=== PATIENT | male | born 1990 | race Two or more races ===

== ENCOUNTER 2023-06-23 13:14 | Emergency (ER) | payer BC, SELFPAY ==
--- NOTE | ~2023-06-23 | CT_ITS ---
CT HEAD WITHOUT IV CONTRAST CT CERVICAL SPINE WITHOUT IV CONTRAST CT MAXILLOFACIAL WITHOUT IV CONTRAST INDICATION: Pain with injury. COMPARISON: None available. TECHNIQUE: Multidetector CT acquisitions of the head, maxillofacial region, and cervical spine were obtained without IV contrast. Multiplanar reformats were acquired and utilized for image interpretation. This CT examination was performed using dose optimization techniques as appropriate, variously including the following: *Automated exposure control *Adjustment of mA and/or kV according to patient size (this includes techniques or standardized protocols for targeted exams where dose is matched to indication/reason for exam; i.e. extremities or head) *Use of iterative reconstruction technique FINDINGS: HEAD: There is no intracranial hemorrhage, hydrocephalus, extra-axial surface collection, midline shift, or other herniation pattern. Mazariegos to white matter differentiation is diffusely maintained without evidence of an evolved acute territorial infarct. The basilar cisterns are preserved. No significant soft tissue abnormality. No acute osseous abnormality. MAXILLOFACIAL: There are no acute maxillofacial fractures. There is moderate mucosal thickening within the left maxillary sinus. The remaining paranasal sinuses remain well-aerated. There is leftward deviation of the nasal septum. Mastoid air cells and middle ear cavities are clear. The TMJs are unremarkable. CERVICAL SPINE: There is anatomic alignment of the vertebral bodies and posterior elements. There is no acute fracture and there is no acute subluxation. The craniocervical and atlantoaxial articulations are normal. There is no prevertebral soft tissue swelling. No significant soft tissue abnormality within the neck. The visualized lung apices are clear. CT/CT cervical spine wo IV con IMPRESSION: - No acute intracranial abnormality. - No acute osseous abnormality within the cervical spine. - No acute osseous abnormality within the maxillofacial region. Moderate mucosal thickening within the left maxillary sinus and leftward deviation of the nasal septum.
[2023-06-23 13:28] VITALS: BP 117/65; PULSE 72; RESP 18; TEMP 36.8; BMI 29.6
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
[2023-06-23 15:53] VITALS: BP 139/81; PULSE 80; RESP 20; TEMP 36.4; O2SAT 97
== END 2023-06-23 16:20 | disposition home or self-care (01) ==
PROVIDERS: Emergency Provider Emergency Medicine Emergency Medical Services
DX: S13.4XXA Sprain of ligaments of cervical spine, initial encounter (principal); S09.90XA Unspecified injury of head, initial encounter; V89.2XXA Person injured in unspecified motor-vehicle accident, traffic, initial encounter; Y93.89 Activity, other specified; Y92.410 Unspecified street and highway as the place of occurrence of the external cause; Y99.9 Unspecified external cause status
CPT/HCPCS: 70450; 70486; 72125; 99284

== ENCOUNTER 2024-12-02 01:10 | Emergency (ER) | payer OTHER, BC, SELFPAY ==
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
[2024-12-02 01:13] VITALS: BP 140/100; PULSE 86; RESP 16; TEMP 36.7; O2SAT 100; BMI 28.0
--- OUTSIDE RECORDS SUMMARY | 2024-12-02 03:21 | XMS_ITS | Clinical Summary ---
Author Organization [facility] Address [address] [place] [address] Care Team Providers Care Cytology Supervisor Name Role Phone Slim Lopez MD Primary Care Provider [phone] Allergies No known active allergies Medications lancetsIndicatio ns:Type 1 diabetes mellitus without complication (CMS/[facility]) 1 (one) lancet (1 each total) by Miscellaneous route 2 (two) times a day. 200 each 3 12/21/19 23 Active blood sugar diagnostic (ONETOUCH ULTRA TEST) Strip Test daily before all meals/snacks and once before bedtime. 200 strip 3 12/22/19 23 Active lancets (ONETOUCH ULTRASOFT) Test daily before all meals/snacks and once before bedtime. 200 each 3 12/22/19 23 Active Active Problems Problem Noted Date Diagnosed Date Encounter to establish care 12/20/2022 Annual physical exam 12/20/2022 Overview (12/19/2023): Age appropriated vaccine reviewed and discussed.. Type 1 diabetes mellitus without complication Primary hypertension 12/20/2022 Assessment & Plan (12/20/2022 2:11 PM EDT): Hypertension is unchanged. Dietary sodium restriction. Weight loss. Regular aerobic exercise. Blood pressure will be reassessed in 3 months. Alcohol use 12/20/2022 Overview (12/20/2022): Social drinker, 2-3 drinks at a time, once a while. Marijuana use 12/20/2022 Overview (12/20/2022): 2 times a day for recreational. Risks discussed. Advised to avoid long term care pharmacist regular use. Handout given. 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 Numbness and tingling of left leg 12/20/2022 Chronic left hip pain 12/20/2022 Immunizations Name Administration Dates Next Due Influenza Quadrivalent Preservative Free (IM) Family History Medical History Relation Name Comments Stomach cancer Father Diabetes Maternal Grandmother Stroke Paternal Grandmother Alcohol abuse Paternal cousin Depression Paternal cousin Relation Name Status Comments Father Maternal Grandmother Paternal Grandmother Paternal cousin Alive Social History Tobacco Use Types Packs/Day Years Used Date Smoking Tobacco: Never Smokeless Tobacco: Never Tobacco Cessation:Counseling Given: No AUDIT-C Answer Date Recorded Q1: How often do you have a drink containing alc ohol? 2-4 times a month 12/20/2022 Q2: How many drinks containi ng alcohol do you have on a typical day when you are drinking? 3 or 4 12/20/2022 Q3: How often do you have si x or more drinks on one occasion? Less than monthly 12/20/2022 PHQ-2 Answer Date Recorded Patient Health Questionnaire-2 Score for SDOH 0 12/20/2022 Sex and Gender Information Value Date Recorded Sex Assigned at Not on file Legal Sex Male 8:39 AM EDT Gender Identity Male 12/20/2022 1:32 PM EDT Sexual Orientation Not on file Last Filed Vital Signs Vital Sign Reading Time Taken Comments Blood Pressure 130/84 12/20/2022 1:01 PM EDT Pulse 87 12/20/2022 1:01 PM EDT Temperature - - Respiratory Rate - - Oxygen Saturation 98% 12/20/2022 1:01 PM EDT Inhaled Oxygen Concentration - - Weight 92.1 kg (203 lb) 12/20/2022 1:01 PM EDT Height 172.7 cm (5' 8 ) 12/20/2022 1:01 PM EDT Body Mass Index 30.87 12/20/2022 1:01 PM EDT Plan of Treatment Health Maintenance Due Date Last Done Comments HEMOGLOBIN A1C 1992 DIABETIC EYE EXAM 1993 FOOT EXAM 2002 HEPATITIS C SCREENING 2009 PNEUMOCOCCAL VACCINE (1 of 2 - PCV) 11/13/2011 DTAP/TDAP/TD VACCINES (1 - Tdap) 2021 COVID-19 IMMUNIZATION (3 - season) 2023 05/21/2021, 08/07/2020 INFLUENZA VACCINE (#1) 2024 01/16/2020 URINE MICROALBUMIN 11/14/2025 11/14/2024 eGFR Screening 11/14/2025 11/14/2024 ZOSTER VACCINE (1 of 2) 2042 RSV IMMUNIZATION (1 - 1-dose 75+ series) 11/13/2067 IPV VACCINES Aged Out No longer eligi ble based on patient's age to complete this topic MENINGOCOCCAL B VACCINE Aged Out No l onger eligible based on patient's age to complete this topic Insurance [facility] ([facility]) Care Teams Cytology Supervisor Relationship Specialty Start Date End Date Slim Lopez MD [address] [facility] [place], [place] [id number] PCP - General Internal Medicine 12/20/22
--- OUTSIDE RECORDS SUMMARY | 2024-12-02 03:21 | XMS_ITS ---
Author Name [facility] Organization Unknown Care Team Organization Name Specialty Phone Email Start Date End [facility] Slim Lopez Primary Care 08/28/2024
--- OUTSIDE RECORDS SUMMARY | 2024-12-02 03:21 | XMS_ITS | Clinical Summary ---
Author Organization [facility] Address [address] [place] [address] Care Team Providers Care Candy Separator Hard Name Role Phone Pcp, No Primary Care Provider Unavailabl e Allergies No known active allergies Medications ibuprofen 600 MG tablet Take 1 tablet (600 mg total) by mouth every 8 (eight) hours as needed for mild pain (1-3) 30 tablet 02/22/2022 Active Social History Tobacco Use Types Packs/Day Years Used Date Smoking Tobacco: Never Smokeless Tobacco: Never Tobacco Cessation:Counseling Given: Not Answered Alcohol Use Standard Drinks/Week Comments Not Currently 0 (1 standard drink = 0.6 oz pur e alcohol) Sex and Gender Information Value Date Recorded Sex Assigned at Not on file Legal Sex Male 7:57 AM EST Gender Identity Not on file Sexual Orientation Not on file Last Filed Vital Signs Vital Sign Reading Time Taken Comments Blood Pressure 129/75 02/22/2022 10:57 AM EST Pulse 90 02/22/2022 10:57 AM EST Temperature 36.6 C (97.8 F) 02/22/2022 8:02 AM EST Respiratory Rate 18 02/22/2022 10:57 AM EST Oxygen Saturation 100% 02/22/2022 10:57 AM EST Inhaled Oxygen Concentration - - Weight 95.3 kg (210 lb) 02/22/2022 8:02 AM EST Height 177.8 cm (5' 10 ) 02/22/2022 8:02 AM EST Body Mass Index 30.13 02/22/2022 8:02 AM EST Plan of Treatment Health Maintenance Due Date Last Done Comments Annual Physical 11/13/1995 Hepatitis B Screening 2010 DTaP,Tdap,and Td Vaccines (1 - Tdap) 11/13/2011 COVID-19 Vaccine (3 - 2023-2 5 season) 2023 05/21/2021, 08/07/2020 Influenza Vaccine (#1) 2024 01/16/2020 HIB Vaccines Aged Out No longer eligi ble based on patient's age to complete this topic Hepatitis A Vaccine Aged Out No longe r eligible based on patient's age to complete this topic Pneumococcal Vaccines 0-49 yrs (includes High Risk) Aged Out No longer eligi ble based on patient's age to complete this topic Insurance [facility] H[facility] Care Teams Candy Separator Hard Relationship Specialty Start [place] [id number] PCP - General 02/22/22
--- OUTSIDE RECORDS SUMMARY | 2024-12-02 03:21 | XMS_ITS | Clinical Summary ---
Author Organization [facility] Address [address] [place] [address] Phone Care Team Providers Care Reel Slitter Name Role Phone Teri Denton MD Primary Care Provider [phone] Allergies No known active allergies Medications blood-glucose meter kit Use daily or as directed for monitoring of diabetes. 1 each 5 026 Active diclofenac (VOLTAREN) 1 % topical gel Apply 2 g topically 2 (two) times a day. 60 g 3 5 Active cholecalciferol (Vitamin D3) 50 mcg (2,000 unit) tablet Take 1 tablet (2,000 Units total) by mouth 1 (one) time each day. 90 tablet 2 5 Active insulin glargine (Lantus Solostar U-100 Insulin) 100 unit/mL (3 mL) injection pen Inject 40 Units under the skin at bedtime. 15 mL 11 5 Active insulin aspart (NovoLOG Flexpen U-100 Insulin) 100 unit/mL (3 mL) injection penIndications:T ype 1 diabetes mellitus without complication (CMS/[facility] V24, CMS/[facility] V28) .. 15 mL 11 5 Active pen needle, diabetic 31 gauge x 5/16 needle Use to inject 1-4 times daily as directed. 100 each 11 5 026 Active insulin aspart (NovoLOG Flexpen U-100 Insulin) 100 unit/mL (3 mL) injection penIndications:T ype 1 diabetes mellitus without complication (CMS/HCC V24, CMS/[facility] V28) .. 15 mL 11 5 025 Discontin ued(Reord er) insulin glargine (Lantus Solostar U-100 Insulin) 100 unit/mL (3 mL) injection pen Inject 40 Units under the skin at bedtime. 15 mL 5 025 Discontin ued(Reord er) pen needle, diabetic 31 gauge x 5/16 needle Use to inject 1-4 times daily as directed. 100 each 5 025 Discontin ued(Reord er) insulin glargine (Lantus Solostar U-100 Insulin) 100 unit/mL (3 mL) injection pen Inject 40 Units under the skin at bedtime. 15 mL 5 025 Discontin ued(Reord er) insulin aspart (NovoLOG Flexpen U-100 Insulin) 100 unit/mL (3 mL) injection penIndications:T ype 1 diabetes mellitus without complication (CMS/[facility] V24, CMS/[facility] V28) .. 15 mL 5 025 Discontin ued(Reord er) Encounters Date Type Department Care Team Description 11/14/2024 10:30 AM EDT Office Visit Internal Medicine - [address] [place] [address] Teri Denton MD Vitamin D deficiency (Primary Dx); Type 1 diabetes mellitus without complication (CMS/[facility] V24, CMS/[facility] V28) from Last 3 Months Family History Medical History Relation Name Comments Diabetes Maternal Grandmother Relation Name Status Comments Maternal Grandmother Social History Tobacco Use Types Packs/Day Years Used Date Smoking Tobacco: Never Smokeless Tobacco: Never Tobacco Cessation:Counseling Given: Not Answered Alcohol Use Standard Drinks/Week Comments Never 0 (1 standard drink = 0.6 oz pur e alcohol) Sex and Gender Information Value Date Recorded Sex Assigned at Male 06/11/2024 8:28 AM EST Legal Sex Male 8:26 AM EST Gender Identity Male 06/11/2024 8:28 AM EST Sexual Orientation Straight 06/11/2024 8: 28 AM EST Obstetrics History Last Filed Vital Signs Vital Sign Reading Time Taken Comments Blood Pressure 128/72 11/14/2024 10:47 AM EDT Pulse 77 11/14/2024 10:47 AM EDT Temperature 36.6 C (97.9 F) 11/14/2024 10:47 AM EDT Respiratory Rate 18 11/14/2024 10:47 AM EDT Oxygen Saturation 97% 11/14/2024 10:47 AM EDT Inhaled Oxygen Concentration - - Weight 89.4 kg (197 lb) 11/14/2024 10:47 AM EDT Height 177.8 cm (5' 10 ) 11/14/2024 10:47 AM EDT Body Mass Index 28.27 11/14/2024 10:47 AM EDT Plan of Treatment Upcoming Encounters Date Type Department Care Team (Late st Contact Info) Description 05/21/2025 11:00 AM EST Office Visit Internal Medicine - [place] [address] [place] [address] Teri Denton MD [address] [place] [address] Health Maintenance Due Date Last Done Comments Diabetes: Annual Foot Exam 2002 Diabetes: Annual Retina Eye Exam 2002 DTaP,Tdap,and Td Vaccines (1 - Tdap) 11/13/2011 Hepatitis B Vaccines (1 of 3 - 19+ 3-dose series) 11/13/2011 Pneumococcal Vaccine: Pediatrics (0 to 5 Years) and At-Risk Patients (6 to 49 Years) (1 of 2 - PCV) 11/13/2011 COVID-19 Vaccine (3 - 2023-2 5 season) 2023 05/21/2021, 08/07/2020 Depression Screening 04/17/2024 HIV Screening 06/11/2024 Hepatitis C Screening 06/11/2024 Social Influencers of Health Screening 06/11/2024 Influenza Vaccine (#1) 2024 01/16/2020 Diabetes: Blood Sugar Contro l Test (HGBA1C) 05/17/2025 11/14/2024, 06/26/2024 Diabetes: Annual Urine Albumin-Creatinine Ratio (uACR) 11/14/2025 11/14/2024 Diabetes: Annual GFR (Glomerular Filtration Rate) 11/14/2025 11/14/2024, 06/26/2024 Hypertension/CHF/CAD Annual BMP Blood Test 11/14/2025 11/14/2024, 06/26/2024 Cholesterol Screening (Lipid Panel) 06/26/2029 06/26/2024 HIB Vaccines Aged Out No longer eligi ble based on patient's age to complete this topic HPV Vaccines Aged Out No longer eligi ble based on patient's age to complete this topic Hepatitis A Vaccines Aged Out No long er eligible based on patient's age to complete this topic IPV Vaccines Aged Out No longer eligi ble based on patient's age to complete this topic MMR Vaccines Aged Out No longer eligi ble based on patient's age to complete this topic Meningococcal ACWY Vaccine Aged Out N o longer eligible based on patient's age to complete this topic Meningococcal B Vaccine Aged Out No l onger eligible based on patient's age to complete this topic RSV Immunization Patients Under 20 months Aged Out No longer eligible b ased on patient's age to complete this topic Varicella Vaccines Aged Out No longer eligible based on patient's age to complete this topic Procedures Procedure Name Priority Date/Time Associated Diagnosis Comments MICROALBUMIN CREATININE URINE RATIO Routine 11/14/2024 11:15 AM EDT Type 1 diabetes mellitus without complication ([facility]/HCC V24, CMS/[facility] V28) HEMOGLOBIN A1C Routine 11/14/2024 11:10 AM EDT Type 1 diabetes mellitus without complication ([facility] V24, [facility] V28) COMPREHENSIVE METABOLIC PANEL Routine 11/14/2024 11:10 AM EDT Type 1 diabetes mellitus without complication (CMS/HCC V24, CMS/HCC V28) LIPID PANEL WITH REFLEX TO DIRECT LDL Routine 06/26/2024 3:55 PM EDT Type 1 diabetes mellitus without complication (CMS/HCC V24, CMS/HCC V28) Vitamin D deficiency Adult general medical examination from Last 3 Months or Most Recently Relevant to Health Maintenance Results * (ABNORMAL) Microalbumin creatinine urine ratio (11/14/2024 11:15 AM EDT) Pathologist [facility] [place] Creatinine, Urine 87.0 mg/dL LAB CHEMISTRY METHOD 11/14/2024 6:[address] [facility] Microalb, Ur 28.8 0.0 - 29.0 mg/L LAB CHEMISTRY METHOD 11/14/2024 6:[address] [facility] Microalb/Creat Ratio 33(H) <30 mg/g creat LAB CHEMISTRY METHOD 11/14/2024 6:[address] [facility] Urine Urine specimen obtained by clean catch procedure / Unknown Non-blood Collection / Unknown 11/14/2024 11:15 AM EDT 11/14/2024 11:15 AM EDT us Teri Denton MD LAB URINE ORDERABLES Final Res ult Performing Organization Address [facility]/ZIP Co de Phone Number [facility] [address] [place] [address], [place] [phone] * (ABNORMAL) Hemoglobin A1c (11/14/2024 11:10 AM EDT) Hemoglobin A1C 11.6(H) <6.5 % LAB CHEMISTRY METHOD 11/14/2024 9:[address] [facility] Mean Bld Glu Estim. 286 mg/dL LAB CHEMISTRY METHOD 11/14/2024 9:[address] [facility] Blood Venous blood specimen / Unknown Venipuncture / Unknown 11/14/2024 11:10 AM EDT 11/14/2024 11:10 AM EDT us Teri Denton MD LAB BLOOD ORDERABLES Final Res ult [facility] [address] [place] [address], [place] [phone] * (ABNORMAL) Comprehensive metabolic panel (11/14/2024 11:10 AM EDT) Sodium 135 133 - 145 mmol/L LAB CHEMISTRY METHOD 11/14/2024 3:04 PM [facility] Potassium 5.3 3.5 - 5.5 mmol/L LAB CHEMISTRY METHOD 11/14/2024 3:04 PM [facility] Chloride 100 96 - 110 mmol/L LAB CHEMISTRY METHOD 11/14/2024 3:04 PM [facility] CO2 31 21 - 32 mmol/L LAB CHEMISTRY METHOD 11/14/2024 3:04 PM [facility] Anion Gap 4 3 - 11 LAB CHEMISTRY METHOD 11/14/2024 3:04 PM [facility] Glucose 263(H) 70 - 100 mg/dL LAB CHEMISTRY METHOD 11/14/2024 3:04 PM [facility] BUN 14 5 - 25 mg/dL LAB CHEMISTRY METHOD 11/14/2024 3:04 PM [facility] Creatinine 0.74 0.70 - 1.30 mg/dL LAB CHEMISTRY METHOD 11/14/2024 3:04 PM [facility] eGFR 123 >=60 mL/min/1. 73m2 LAB CHEMISTRY METHOD 11/14/2024 3:04 PM [facility] Comment:Calculation based on the Chronic Kidney Disease Epidemiology Collaboration (CKD-EPI) equation refit without adjustment for race. BUN/Creatinine Ratio 18.9 LAB CHEMISTRY METHOD 11/14/2024 3:04 PM [facility] Calcium 9.8 8.5 - 10.5 mg/dL LAB CHEMISTRY METHOD 11/14/2024 3:04 PM [facility] AST (SGOT) 9(L) 10 - 42 unit/L LAB CHEMISTRY METHOD 11/14/2024 3:04 PM [facility] ALT (SGPT) 22 10 - 60 unit/L LAB CHEMISTRY METHOD 11/14/2024 3:04 PM [facility] Alkaline Phosphatase 110 42 - 121 unit/L LAB CHEMISTRY METHOD 11/14/2024 3:[address] [facility] Total Protein 7.7 6.0 - 8.0 g/dL LAB CHEMISTRY METHOD 11/14/2024 3:[address] [facility] Albumin 4.3 3.2 - 5.0 g/dL LAB CHEMISTRY METHOD 11/14/2024 3:[address] [facility] Total Bilirubin 0.5 0.0 - 1.4 mg/dL LAB CHEMISTRY METHOD 11/14/2024 3:[address] [facility] Blood Venous blood specimen / Unknown Venipuncture / Unknown 11/14/2024 11:10 AM EDT 11/14/2024 11:10 AM EDT us Teri Denton MD LAB BLOOD ORDERABLES Final Res ult [facility] [address] [place] [address], [place] [phone] * Lipid panel with reflex to direct LDL (06/26/2024 3:55 PM EDT) Cholesterol 145 0 - 200 mg/dL LAB CHEMISTRY METHOD 06/26/2024 6:[address] [facility] Triglycerides 129 0 - 150 mg/dL LAB CHEMISTRY METHOD 06/26/2024 6:[address] [facility] HDL 40 >=40 mg/dL LAB CHEMISTRY METHOD 06/26/2024 6:[address] [facility] LDL Calculated 79 0 - 100 mg/dL LAB CHEMISTRY METHOD 06/26/2024 6:[address] [facility] VLDL Cholesterol Rubén 25.8 mg/dL LAB CHEMISTRY METHOD 06/26/2024 6:[address] [facility] Non HDL Chol. (LDL+VLDL) 105 <145 mg/dL LAB CHEMISTRY METHOD 06/26/2024 6:55 PM EDT [facility] Chol/HDL Ratio 3.6 0.0 - 4.4 LAB CHEMISTRY METHOD 06/26/2024 6:55 PM EDT [facility]) [facility] Blood Venous blood specimen / Unknown Venipuncture / Unknown 06/26/2024 3:55 PM EDT 06/26/2024 3:55 PM EDT Teri Denton MD LAB BLOOD ORDERABLES Final Res ult [facility] ([facility]) [facility] [address] [place] [address], from Last 3 Months or Most Recently Relevant to Health Maintenance Insurance [facility]) Care Teams Reel Slitter Relationship Specialty Start Date End Date Teri Denton MD [address] [phone] PCP - General Internal Medicine 06/11/24
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
[2024-12-02 05:49] VITALS: BP 159/107; PULSE 81; RESP 16; TEMP 36.4; O2SAT 98
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
[2024-12-02 05:55] LABS: Glucose, Whole Blood 199 mg/dL (60-115)
[2024-12-02 07:44] VITALS: BP 113/71; PULSE 73; RESP 18; TEMP 36.8; O2SAT 100
== END 2024-12-02 07:45 | disposition home or self-care (01) ==
PROVIDERS: Emergency Provider Emergency Medicine; PCP Internal Medicine
DX: S00.83XA Contusion of other part of head, initial encounter (principal); Y04.2XXA Assault by strike against or bumped into by another person, initial encounter; Y93.89 Activity, other specified; Y92.89 Other specified places as the place of occurrence of the external cause; Y99.9 Unspecified external cause status; Z79.899 Other long term (current) drug therapy
CPT/HCPCS: 70486; 82947; 99284

== ENCOUNTER → 2024-12-02 05:36 | Outpatient (BNV) | payer OTHER, SELFPAY | PROVIDERS: Emergency Provider Emergency Medicine; PCP Internal Medicine; Visit Provider Radiology Diagnostic Radiology | DX: S00.83XA Contusion of other part of head, initial encounter (principal); Y09 Assault by unspecified means; Z04.2 Encounter for examination and observation following work accident | CPT/HCPCS: 70486 ==